=== PATIENT | female | born 1965 | race African-American/Black ===

== ENCOUNTER → 2020-10-03 | Day surgery (SDC) | payer OTHER | END | disposition home or self-care (01) | LOC: FAS 09:23 | DX: Z12.11 Encounter for screening for malignant neoplasm of colon (principal); K57.30 Diverticulosis of large intestine without perforation or abscess without bleeding; K58.9 Irritable bowel syndrome, unspecified; Z80.0 Family history of malignant neoplasm of digestive organs; Z86.010 Personal history of colon polyps | CPT/HCPCS: J1610; J2704; J7120 ==